=== PATIENT | female | born 1960 | race Caucasian/White ===

== ENCOUNTER → 2022-04-02 12:11 | Outpatient (REF) | payer MEDICARE, MEDICAID, SELFPAY ==
--- NOTE | 2022-04-02 12:21 | CA_ITS ---
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 The visually estimated ejection fraction is >70%. - There is mild calcification of the aortic valve. - No obvious valvular pathology seen on this study. Findings Left Ventricle Normal left ventricular cavity size. There is normal left ventricular wall thickness. The left ventricular systolic function is hyperdynamic. The visually estimated ejection fraction is >70%. There is no evidence of regional wall motion abnormalities. Diastolic function is normal for age. Right Ventricle Normal right ventricular cavity size and systolic function. Atria Both atria are normal in size. Aortic Valve There is a normal trileaflet aortic valve. There is mild calcification of the aortic valve. There is no aortic valve stenosis. There is no aortic valve regurgitation. Mitral Valve The mitral valve appears normal. There is no mitral valve regurgitation. There is no mitral valve stenosis. Pulmonic Valve The pulmonic valve is likely normal. Tricuspid Valve There is trace tricuspid valve regurgitation. The pulmonary artery systolic pressure is normal. Great Vessels The asc aorta and aortic arch are normal in size. Venous The inferior vena cava is normal in size and collapses greater than 50% with inspiration. Pericardium/Pleural There is a trivial pericardial effusion. Prior Study Comparison No prior study available for comparison. Recommendations, Care & Conclusions No obvious valvular pathology seen on this study. Measurements 2D Linear Measurements IVSd: 1.09 0.6-0.9/0.6-1.0 cm LVIDd: 3.02 3.9-5.3/4.2-5.9 cm LVIDd Index: 2.20 2.4-3.2/2.2-3.1 cm/m2 LVIDs: 1.45 2.0-3.6 cm LVPWd: 1.00 0.7-1.1 cm LA Diam: 2.70 2.7-3.8/3.0-4.0 cm LAIDs Index: 1.97 1.5-2.3 cm/m2 LV Mass: 110.12 67-162/88-224 g LV Mass Index: 80.38 43-95/49-115 g/m2 LVOT Diam: 1.90 3.0+(-)1.3 cm 2D Systolic Function EF 4C: 70.40 >55% EF 2C: 65.10 >55% EF BiP: 68.60 >55% Mitral Valve MV Pk E: 0.49 MV PK A: 0.63 MV Decel Time: 285.00 E/A: 0.80 E'Lateral: 7.72 E'Medial: 6.20 E/E' Med: 7.90 E/E' Lat: 6.30 PHT: 84.00 MVA PHT: 2.62 Decel [place]: 1.71 Aortic Valve AoV Pk Killian: 1.75 AoV Mn Killian: 1.20 AoV VTI: 0.42 AoV Pk Grad: 12.00 Aov Mn Grad: 6.00 HAFSA Cont.VTI: 1.53 LVOT LVOT Pk Killian: 0.94 LVOT Mn Killian: 0.69 LVOT VTI: 0.23 LVOT Pk Grad: 4.00 LVOT Mn Grad: 2.00 LVOT Diam: 1.90 LVOT Area: 2.84 Diastolic Function MV Pk E: 0.49 MV Pk A: 0.63 E/A: 0.80 E'Medial: 6.20 E/E' Med: 7.90 E' Laterial: 7.72 E/E' Lat: 6.30 Right Ventricle TAPSE (mm): 23.40 TVS' Killian: 11.60 Tricuspid Valve TR Pk Killian: 2.02 TR Pk Grad: 16.00 RA Press: 3.00 RVSP: 19.00 Great Vessels Aorta Sinus of Valsalva: 2.38 2.0-3.[address] [place]: 2.16 1.7-3.4 cm Ao Asc: 2.60 2.1-3.4 cm Ao Arch: 2.60 Updated in Other Vendor System with Status of Final Randy Gann MD electronically signed on 04/04/2022 5:27:05 PM with status of Final
== END ==
LOC: HO.CARD 12:11
PROVIDERS: Visit Provider Internal Medicine
DX: I63.9 Cerebral infarction, unspecified (principal)
CPT/HCPCS: 93306